=== PATIENT | male | born 1980 | race Caucasian/White ===

== ENCOUNTER → 2017-07-01 | Outpatient (CLI) | payer OTHER ==
[~2017-07-01] MED LIST: ALPR0.25 PO; CETI10TA84 PO; CITA20TA9 PO; PRLSR20 PO; SINCALIDE INJ 3.2 MCG in SODIUM CHLORIDE 0.9% 100ML 100 ML IV ONE
--- NOTE | 2017-07-01 10:21 | DIAGNOSTIC IMAGING REPORT ---
NUCLEAR MEDICINE HEPATOBILIARY SCAN WITH EJECTION FRACTION HISTORY: UPPER ABDOMINAL PAIN,UNSPECIFIED COMPARISON: None. TECHNIQUE: Immediately following the intravenous administration of 5.5 mCi Tc-99m Choletec, dynamic anterior abdominal imaging pre/post 3.2 mcg of Kinevac was performed. FINDINGS: Uniform hepatic tracer accumulation is shown. Prompt intrahepatic biliary excretion is seen. The gallbladder and common bile duct are identified at 10 minutes. Delayed visualization of small bowel which is identified at the 70 minute marcelo. The gall bladder ejection fraction following administration of Kinevac was 15% (normal >35%). IMPRESSION: 1. No evidence for cystic duct obstruction. 2. Abnormally low gallbladder ejection fraction calculated to be 15 %. This may account for the delayed visualization of small bowel. This suggests biliary dyskinesia/gallbladder dysfunction. Electronically signed by: Miguel A Hackett M.D. 07/01/2017 10:20 AM Dictated Date/Time: 07/01/2017 10:18 AM
== END | disposition home or self-care (01) ==
LOC: C.NUCL 07:35
PROVIDERS: ATTEND Family Medicine
DX: R10.10 Upper abdominal pain, unspecified (principal)